=== PATIENT | female | born 1960 | race Caucasian/White ===

== ENCOUNTER 2019-01-30 07:14 | Emergency (ER) | payer OTHER, MEDICAID, SELFPAY ==
--- NOTE | 2019-01-30 07:22 | DI.CT.S_ITS ---
PROCEDURE: CT ABDOMEN PELVIS W CON INDICATIONS: ab distention and pain 2 weeks TECHNIQUE: After the administration of oral and intravenous contrast, 5 mm thick sections acquired from the diaphragms to the symphysis. 5 mm thick coronal and sagittal reformats were performed. For radiation dose reduction, the following was used: automated exposure control, adjustment of mA and/or kV according to patient size. COMPARISON: None. FINDINGS: Image quality: Excellent. ABDOMEN: Lung bases: Lung bases are clear. Heart size is normal. Solid organs: The liver is somewhat small in size and demonstrates moderate nodularity to the surface of the liver. No definite liver lesions are evident. The main portal vein is extremely small in size. No definite intraluminal thrombus is evident, however. The gallbladder is enlarged. The common bile duct is slightly prominent in size, measuring up to approximately 6 mm in diameter. The spleen is measuring within the upper limits of normal for size at approximately 11 cm. The adrenals and pancreas are unremarkable. Wedgelike areas of decreased density are present involving the bilateral kidneys. There is no hydronephrosis. Prominent vascular structures adjacent to the left renal vein are present, suggesting a spontaneous splenorenal shunt. Peritoneum and bowel: Multiple varicosities are evident at adjacent to the distal esophagus. The thickening of the body of the stomach is present. There is minimal free air adjacent to the stomach within this location. The small bowel loops are nondilated. The colon is within normal limits. There is a moderate amount of abdominal ascites. No loculated fluid collection is evident. There is a moderate amount of free air. Nodes and vessels: No retroperitoneal or mesenteric adenopathy. Aorta and inferior vena cava are normal in caliber. There is prominent aortic atherosclerosis. Atherosclerotic changes are noted at the origins of the bilateral renal arteries. Bones: No acute fracture or suspicious osseous lesion is present. There are age-appropriate degenerative changes of the lower lumbar spine. PELVIS: Genitourinary: Bladder wall thickness is normal. The uterus is not enlarged. A Miscellaneous: No inguinal hernias or adenopathy. There is a large amount of pelvic ascites. No drainable fluid collections are evident. Bones: No suspicious bony lesions. No acute pelvic fractures are evident. IMPRESSION: 1. Large amount of abdominal ascites probably is related to hepatic cirrhosis. No abscesses are evident. 2. Prominent amount of free air suggests perforated viscus, which is likely originating from the stomach, given wall thickening and adjacent small pockets of pneumoperitoneum. Clinical correlation to exclude a ruptured gastric ulcer is recommended. 3. Cirrhotic liver morphology with marked narrowing of the portal vein. No definite portal vein thrombus is evident. 4. There is a spontaneous left splenorenal shunt and esophageal varices. 5. 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 Clinical correlation is recommended. Dictated by: Kristian Villanueva M.D. on 01/30/2019 at 7:50 Approved by: Kristian Villanueva M.D. on 01/30/2019 at 7:58
== END 2019-01-30 10:34 | disposition short-term general hospital (02) ==
PROVIDERS: Emergency Provider Emergency Medicine
DX: K63.1 Perforation of intestine (nontraumatic) (principal); K70.31 Alcoholic cirrhosis of liver with ascites
CPT/HCPCS: 36415; 74177; 80053; 83690; 85025; 96361; 96374; 99282; 99285; Q9967

== ENCOUNTER 2019-01-30 07:16 | Emergency (ER) | payer SELFPAY ==
[2019-01-30 07:22] VITALS: BP 142/58; PULSE 110; RESP 18; TEMP 37.1; O2SAT 98
[2019-01-30 07:51] LABS: Add Manual Diff / Slide Review NO; Basophils Absolute Auto 0 /uL (0-100); Basophils Percent Auto 0.5 % (0-2); Eosinophils Absolute Auto 0 /uL (0-450); Eosinophils Percent Auto 0.7 % (2-4); Hematocrit 25.4 % (36-46); Hemoglobin 8.1 g/dL (12.0-16.0); Lymphocytes Absolute Auto 400 /uL (1100-4500); Lymphocytes Percent Auto 5.1 % (25-40); Mean Corpuscular Hemoglobin 26.3 PG (26-34); Mean Corpuscular Volume 82.1 fL (80-100); Monocytes Absolute Auto 400 /uL (0-900); Monocytes Percent Auto 5.7 % (3-14); Neutrophils Absolute Auto 6300 /uL (1500-7000); Platelet Count 113 X10^3/uL (150-400); Red Blood Cell Count 3.09 X10^6/uL (4.0-5.2); Red Cell Distribution Width 24.1 % (11.6-14.8); White Blood Cell Count 7.1 X10^3/uL (4.5-11.0)
--- NOTE | 2019-01-30 07:53 | ED.ABDPAIN ---
HPI - Abdominal Pain General Chief Complaint: Abdominal Pain Stated Complaint: Abdominal Pain Time Seen by Provider: 01/30/19 07:47 Source: patient and EMS Mode of arrival: EMS Limitations: no limitations History of Present Illness HPI narrative: Patient is a 58-year-old female presents with abdominal pain ongoing for last 2 weeks. Her abdomen is quite distended. No vomiting she has pain and discomfort. She had a bowel movement this morning. Only surgical history is a . She admits to drinking alcohol which she says she quit 1 month ago. She denies any fever cough shortness of breath. Only complaining of abdominal. CHARLY MARSHALL [phone] complaint: abdominal pain Onset (ago): week(s) (2) Pain Consistency: constant Location: diffuse Severity: severe Quality: fullness Radiation: none Migration to: no migration Relieving factors: nothing Exacerbating factors: nothing Related Data Allergies Allergy/AdvReac Type Severity Reaction Status Date / Time codeine Allergy Verified 01/30/19 10:17 Review of Systems Review of Systems ROS Unobtainable: All systems reviewed & are unremarkable except as noted in HPI and below Constitutional Denies chills, Denies fever(s), Denies lethargy and Denies weakness Eyes Denies change in vision, Denies eye discharge, Denies irritation and Denies loss of vision ENT Ears, Nose, Mouth, and Throat: Denies change in voice, Denies neck pain and Denies sore throat Cardiovascular Denies chest pain, Denies irregular heart rhythm, Denies lightheadedness, Denies palpitations, Denies dyspnea, Denies dyspnea on exertion and Denies orthopnea Respiratory Denies cough, Denies dyspnea, Denies dyspnea on exertion and Denies wheezing Gastrointestinal Gastrointestinal: Reports as per HPI Genitourinary Denies hematuria, Denies flank pain, Denies urinary incontinence and Denies urinary urgency Musculoskeletal Denies neck pain Integumentary/Breasts Denies pruritus, Denies erythema, Denies rash and Denies wounds Neurologic Denies confusion, Denies loss of vision and Denies weakness Psychiatric Denies anxiety, Denies confusion, Denies depression, Denies homicidal ideation and Denies suicidal ideation Endocrine Denies palpitations Allergic/Immunologic Denies wheezing [facility] Medical History Patient denies significant medical history (Acute) Surgical History Status post (Acute) Social History alcohol intake: current Social History alcohol intake: current Exam Initial Vital Signs Initial Vital Signs: Vital Signs Pulse Rate 109 H 01/30/19 08:54 Respiratory Rate 01/30/19 08:54 Blood Pressure 116/63 01/30/19 08:54 Pulse Oximetry 100 01/30/19 08:54 GENERAL: Alert slightly pale female and in [no acute] distress. HEENT: Head atraumatic,EOMI, neck is supple CARDIOVASCULAR: Regular rate and rhythm without murmurs, rubs or gallops. RESPIRATORY: Breath sounds equal bilaterally, no wheezes rales or rhonchi. ABDOMEN: Abdominal distention and decreased bowel sounds no localization, no guarding no rebound EXTREMITIES: Normal range of motion, no clubbing or edema. Neurovascularly intact NEUROLOGICAL: Alert and oriented x4.Normal gait and speech. Cranial nerves II through XII grossly intact. SKIN: Warm, dry, no laceration, no petechiae, no rashes or lesions. Course Orders Ordered: ED Orders 01/30/19 07:40 Complete Blood Count AUTO DIFF Stat Comprehensive Metabolic Panel Stat Fresh Frozen Plasma Stat Lactate (Lactic Acid) Stat Lipase Stat Partial Thromboplastin Time Stat Prothrombin Time INR Stat Type and Screen Stat Discontinued Medications Lactated Ringer's (Lactated Ringers) 1,000 mls @ 1,000 mls/hr IV BOLUS ONE Stop: 01/30/19 09:42 Last Infusion: 01/30/19 10:32 Dose: 100 mls/hr Infusion: 01/30/19 09:02 Dose: 100 mls/hr Admin: 01/30/19 08:46 Dose: 1,000 mls/hr Ondansetron HCl (Zofran) 4 mg IV NOW ONE Stop: 01/30/19 07:52 Last Admin: 01/30/19 08:38 Dose: 4 mg Sodium Chloride (Normal Saline 0.9%) 100 ml IV NOW ONE Stop: 01/30/19 08:41 Last Admin: 01/30/19 08:43 Dose: Not Given Consultations Consultation #1: Dr. Benitez, surgery, has been updated on patient's CT results. Due to the large amount of ascites and liver failure recommend that patient be transferred to a higher level of care with the capability of managing cirrhosis and perforation Time: 09:11 Consultation #2: Dr. Us at [facility] accepts patient. Patient is to go directly to the OR recommends treating Time: 09:37 Consultation #3: Dr. Moon ED doctor accepts patient. Time: 09:39 Vital Signs - 8 hr 01/30/19 08:54 01/30/19 09:00 01/30/19 09:45 Temperature Pulse Rate 109 H 108 H 109 H Respiratory Rate 19 23 27 H Blood Pressure Blood Pressure [Left Arm] 116/63 117/59 L 125/59 L Pulse Oximetry 100 100 99 01/30/19 10:24 Temperature 98.4 F Pulse Rate 109 H Respiratory Rate 27 H Blood Pressure 121/68 Blood Pressure [Left Arm] Pulse Oximetry MDM - Abdominal Pain Lab Data Attestation: I reviewed the patient's lab results. Result diagrams: 01/30/19 07:40 01/30/19 07:40 Lab Results 01/30/19 01/30/19 01/30/19 Range/Units 07:40 07:40 07:40 WBC 7.2 (4.5-11.0) X10^3/uL RBC 3.06 L (4.0-5.2) X10^6/uL Hgb 8.1 L (12.0-16.0) g/dL Hct 25.2 L (36-46) % MCV 82.4 (80-100) fL MCH 26.6 (26-34) PG MCHC 32.3 (30-36) % RDW 24.6 H (11.6-14.8) % Plt Count 132 L (150-400) X10^3/uL Neut % (Auto) 87.8 H (50-75) % Lymph % (Auto) 4.9 L (25-40) % [place] % (Auto) 6.3 (3-14) % Eos % (Auto) 0.5 L (2-4) % Baso % (Auto) 0.5 (0-2) % Neut # (Auto) 6300 (9104-2573) /uL Lymph # (Auto) 400 L (8853-4917) /uL [place] # (Auto) 500 (0-900) /uL Eos # (Auto) 0 (0-450) /uL Baso # (Auto) 0 (0-100) /uL RBC Morphology See below Hypochromasia 2+ H Anisocytosis 2+ H PT 20.8 H (10.1-12.7) SECONDS INR 1.8 H (0.9-1.3) APTT 30 (26.4-36.2) SECONDS Sodium 137 (137-145) mmol/L Potassium 2.8 L (3.4-5.1) mmol/L Chloride 110 H (98-107) mmol/L Carbon Dioxide 14 L (22-32) mmol/L BUN 16 (7-17) mg/dL Creatinine 1.00 (0.52-1.04) mg/dL Estimated GFR 56.6 L (>60) mL/min BUN/Creatinine Ratio 16.0 (6-22) Glucose 86 (80-110) mg/dL Lactate (0.7-2.1) mmol/L Calcium 8.3 L (8.4-10.2) mg/dL Total Bilirubin 3.0 H (0.2-1.3) mg/dL AST 71 H (14-36) IU/L ALT 27 (9-52) IU/L Alkaline Phosphatase 155 H (38-126) U/L Total Protein 6.6 (6.3-8.2) g/dL Albumin 2.5 L (3.5-5.0) g/dL Globulin 4.1 (1.7-4.1) g/dL Albumin/Globulin Ratio 0.6 L (1.0-2.8) Lipase 146 (23-300) U/L Blood Type Antibody Screen 01/30/19 01/30/19 01/30/19 Range/Units 07:40 07:40 10:10 WBC (4.5-11.0) X10^3/uL RBC (4.0-5.2) X10^6/uL Hgb (12.0-16.0) g/dL Hct (36-46) % MCV (80-100) fL MCH (26-34) PG MCHC (30-36) % RDW (11.6-14.8) % Plt Count (150-400) X10^3/uL Neut % (Auto) (50-75) % Lymph % (Auto) (25-40) % [place] % (Auto) (3-14) % Eos % (Auto) (2-4) % Baso % (Auto) (0-2) % Neut # (Auto) (6844-8425) /uL Lymph # (Auto) (5685-7954) /uL [place] # (Auto) (0-900) /uL Eos # (Auto) (0-450) /uL Baso # (Auto) (0-100) /uL RBC Morphology Hypochromasia Anisocytosis PT (10.1-12.7) SECONDS INR (0.9-1.3) APTT (26.4-36.2) SECONDS Sodium (137-145) mmol/L Potassium (3.4-5.1) mmol/L Chloride (98-107) mmol/L Carbon Dioxide (22-32) mmol/L BUN (7-17) mg/dL Creatinine (0.52-1.04) mg/dL Estimated GFR (>60) mL/min BUN/Creatinine Ratio (6-22) Glucose (80-110) mg/dL Lactate 3.3 H 3.4 H (0.7-2.1) mmol/L Calcium (8.4-10.2) mg/dL Total Bilirubin (0.2-1.3) mg/dL AST (14-36) IU/L ALT (9-52) IU/L Alkaline Phosphatase (38-126) U/L Total Protein (6.3-8.2) g/dL Albumin (3.5-5.0) g/dL Globulin (1.7-4.1) g/dL Albumin/Globulin Ratio (1.0-2.8) Lipase (23-300) U/L Blood Type A Positive Antibody Screen Negative Imaging Data CT scan - abdomen: Radiologist's impression: 1. Large amount of abdominal ascites probably is related to hepatic cirrhosis. No abscesses are evident. 2. Prominent amount of free air suggest perforated viscus which is likely originating from the stomach given wall thickening and adjacent small pockets of pneumoperitoneum. Clinically correlate to exclude a ruptured gastric ulcer is recommended 3. Cirrhotic liver morphology with marked narrowing of portal vein. No definite portal vein thrombus is evident. 4. There is a spontaneous left splenorenal shunt and esophageal varices 5. Wedge like areas of decreased density involving bilateral kidneys are suggestive of a renal infarctions. Clinical correlation is recommended. MDM Narrative Medical decision making narrative: Due to patient's multiple complications of liver cirrhosis ascites and now perforated his discus. Patient will need to be transferred to higher level of care. She is awake alert pain is managed. Hemodynamically stable although slightly tachycardic at 105-107. Blood pressure has remained stable as 125/59. [facility]. I HAVE CALLED AND SPOKEN WITH PATIENT'S ROOMMATE BREAK WAS MADE AWARE OF THE SITUATION AND URGENT NEED. Ground Transport cannot be here for 3 hours, patient will be airlifted to [facility]. Patient understands the critical status and agrees for transport. Critical Care Time Critical Care Time: Yes Total Critical Care Time: 45 Attestation: The high probability of a clinically significant, sudden or life threatening deterioration of the cardiovascular, and gastrointestinal system(s) required my full and direct attention, intervention and personal management. The aggregate critical care time was 45 minutes. This time is in addition to time spent performing reported procedures but includes the following: x Data Review and interpretation x Patient assessment and monitoring of vital signs x Documentation x Medication orders and management Discharge Plan Departure Patient Disposition: [facility] Clinical Impression: Perforated abdominal viscus Alcoholic cirrhosis Qualifiers: Ascites presence: with ascites Qualified Code(s): K70.31 - Alcoholic cirrhosis of liver with ascites Discharge Date/Time: 01/30/19 10:27 Interventions: ED Discharge Assessment Last Done: 01/30/19 10:27
[2019-01-30 07:58] LABS: Alanine Aminotransferase 30 IU/L (9-52); Albumin 2.5 g/dL (3.5-5.0); Albumin Globulin Ratio 0.6 (1.0-2.8); Alkaline Phosphatase 155 U/L (38-126); Aspartate Aminotransferase 69 IU/L (14-36); Bilirubin Total 3.1 mg/dL (0.2-1.3); Blood Urea Nitrogen 15 mg/dL (7-17); Calcium 8.2 mg/dL (8.4-10.2); Carbon Dioxide 15 mmol/L (22-32); Chloride 109 mmol/L (98-107); Estimated Glomerular Filt Rate 56.6 mL/min (>60); Globulin 4.1 g/dL (1.7-4.1); Glucose 85 mg/dL (80-110); HEMOLYSIS < 15 (0-50); Lipase 144 U/L (23-300); Potassium 2.8 mmol/L (3.4-5.1); Sodium 137 mmol/L (137-145); Total Protein 6.6 g/dL (6.3-8.2)
[2019-01-30 08:20] LABS: Alanine Aminotransferase 27 IU/L (9-52); Albumin 2.5 g/dL (3.5-5.0); Albumin Globulin Ratio 0.6 (1.0-2.8); Alkaline Phosphatase 155 U/L (38-126); Aspartate Aminotransferase 71 IU/L (14-36); Blood Urea Nitrogen 16 mg/dL (7-17); Calcium 8.3 mg/dL (8.4-10.2); Carbon Dioxide 14 mmol/L (22-32); Chloride 110 mmol/L (98-107); Estimated Glomerular Filt Rate 56.6 mL/min (>60); Globulin 4.1 g/dL (1.7-4.1); Glucose 86 mg/dL (80-110); HEMOLYSIS < 15 (0-50); Lipase 146 U/L (23-300); Potassium 2.8 mmol/L (3.4-5.1); Sodium 137 mmol/L (137-145); Total Protein 6.6 g/dL (6.3-8.2)
[2019-01-30 08:21] LABS: Lactate (Lactic Acid) 3.3 mmol/L (0.7-2.1)
[2019-01-30 08:23] LABS: Add Manual Diff / Slide Review NO; Basophils Absolute Auto 0 /uL (0-100); Basophils Percent Auto 0.5 % (0-2); Eosinophils Absolute Auto 0 /uL (0-450); Eosinophils Percent Auto 0.5 % (2-4); Hematocrit 25.2 % (36-46); Hemoglobin 8.1 g/dL (12.0-16.0); Lymphocytes Absolute Auto 400 /uL (1100-4500); Lymphocytes Percent Auto 4.9 % (25-40); Mean Corpuscular HGB Conc 32.3 % (30-36); Mean Corpuscular Hemoglobin 26.6 PG (26-34); Mean Corpuscular Volume 82.4 fL (80-100); Monocytes Absolute Auto 500 /uL (0-900); Monocytes Percent Auto 6.3 % (3-14); Neutrophils Absolute Auto 6300 /uL (1500-7000); Neutrophils Percent Auto 87.8 % (50-75); Platelet Count 132 X10^3/uL (150-400); Red Blood Cell Count 3.06 X10^6/uL (4.0-5.2); Red Cell Distribution Width 24.6 % (11.6-14.8); White Blood Cell Count 7.2 X10^3/uL (4.5-11.0)
[2019-01-30] MEDS: ONDANSETRON 4 MG/2 ML INJ IV (08:38)
[2019-01-30 08:46] LABS: Anisocytosis 2+; Hypochromasia 2+
[2019-01-30] MEDS: LACTATED RINGERS 1,000 ML 1000 ML IV (08:46)
[2019-01-30 08:47] LABS: Anisocytosis 2+; Hypochromasia 2+
[2019-01-30 08:54] VITALS: BP 116/63; PULSE 109; RESP 19; O2SAT 100
[2019-01-30 09:00] VITALS: BP 117/59; PULSE 108; RESP 23; O2SAT 100
[2019-01-30 09:45] VITALS: BP 125/59; PULSE 109; RESP 27; O2SAT 99
--- NOTE | 2019-01-30 09:46 | PC.NURSE ---
verbal understanding plan of care.
[2019-01-30 09:55] LABS: Reflexed Lactate in 2 Hours Y
--- NOTE | 2019-01-30 10:09 | PC.NURSE ---
for repeat lactate.
[2019-01-30 10:24] VITALS: BP 121/68; PULSE 109; RESP 27; TEMP 36.9
--- NOTE | 2019-01-30 10:31 | PC.NURSE ---
report called to [facility], spoke with
[2019-01-30 10:37] LABS: Lactate 2HR (Lactic Acid Rflx) 3.4 mmol/L (0.7-2.1)
[2019-01-30 10:43] LABS: INR 1.8 (0.9-1.3); Prothrombin Time 20.8 SECONDS (10.1-12.7)
[2019-01-30 10:46] LABS: PTT Partial Thromboplastin Tim 30 SECONDS (26.4-36.2)
--- NOTE | 2019-02-02 17:35 | PC.NURSE ---
Documentation transfered from incorrect account. Original documentation by HEMANTH RN
== END 2019-01-30 10:27 | disposition short-term general hospital (02) ==
PROVIDERS: Emergency Provider Emergency Medicine
DX: R10.9 Unspecified abdominal pain (principal)
CPT/HCPCS: 36415; 36430; 80053; 83605; 83690; 85025; 85610; 85730; 86850; 86900; 86901; 86927; 99283; P9016; J2405